=== PATIENT | male | born 1985 | race Two or more races ===

== ENCOUNTER 2018-08-20 18:59 | Emergency (ER) | payer SELFPAY ==
[2018-08-20 20:51] LABS: UA SPECIFIC GRAVITY 1.015 (1.005-1.035); microscopic required? YES; urine erythrocyte TRACE (NEGATIVE)
[2018-08-20 20:53] LABS: PLATELET COUNT 133 x10^3mcL (130-400); RED CELL DISTRIBUTION WIDTH 12.7 % (11.5-14.5)
[2018-08-20 20:57] LABS: CALCIUM 9.4 mg/dL (8.5-10.1); CARBON DIOXIDE 30.2 mmol/L (21-32); CHLORIDE SERUM 108 mmol/L (98-107); CREATININE SERUM 1.2 mg/dL (0.7-1.3); GFR1 > 60 mL/min; GLUCOSE SERUM 82 mg/dL (74-106); POTASSIUM SERUM 3.7 mmol/L (3.5-5.1); SODIUM SERUM 145 mmol/L (136-145)
[2018-08-20 21:02] LABS: ALKALINE PHOSPHATASE 63 U/L (46-116); ALT/SGPT 25 U/L (16-63); AST/SGOT 19 U/L (15-37); BILIRUBIN TOTAL 0.38 mg/dL (0.20-1.00); LIPASE 299 IU/L (73-393); TOTAL PROTEIN, SERUM 7.9 g/dL (6.4-8.2)
[2018-08-20 22:41] VITALS: BP 146/73
== END 2018-08-20 22:41 | disposition home or self-care (01) ==
LOC: ED 18:59
PROVIDERS: Emergency Medicine
DX: R10.9 Unspecified abdominal pain (principal); M54.6 Pain in thoracic spine
CPT/HCPCS: 87491; 87591; J0696; J1885; J2060; J7030